=== PATIENT | female | born 1965 | race Caucasian/White ===

== ENCOUNTER 2016-11-10 21:00 | Emergency (ER) | payer SELFPAY | END 2016-11-10 22:50 | disposition left against medical advice (07) | LOC: D.ER 21:00 | DX: S30.860A Insect bite (nonvenomous) of lower back and pelvis, initial encounter (principal) ==

== ENCOUNTER 2017-08-27 20:03 | Emergency (ER) | payer SELFPAY | END 2017-08-27 21:30 | disposition home or self-care (01) | LOC: D.ER 20:03 | DX: J20.9 Acute bronchitis, unspecified (principal) ==

== ENCOUNTER 2019-03-17 04:13 | Inpatient (IN) | payer MEDICAID ==
[~2019-03-17] VITALS: Ht 157.5 cm; Wt 90.9 kg
[2019-03-17] VITALS (8 sets, daily range): BP systolic 116–161; BP diastolic 71–100; Ht 157.5 cm; Wt 90.9 kg
--- NOTE | ~2019-03-17 | OP ---
PATIENT NAME: TASHA JIMÉNEZ MEDICAL RECORD: [id number] :67 LOCATION:[facility] ADMISSION DATE:03/17/19 SURGEON: MELVIN VELASQUEZ MD DATE OF OPERATION: 03/18/2019 PREOPERATIVE DIAGNOSES: 1. Acute cholecystitis. 2. Morbid obesity. POSTOPERATIVE DIAGNOSES: 1. Acute cholecystitis. 2. Morbid obesity. PROCEDURE: Laparoscopic cholecystectomy. SURGEON: Melvin Velasquez MD REPORT OF PROCEDURE: The patient's abdomen was prepped and draped in sterile fashion. A cutdown was made on the superior aspect of the umbilicus and 0 Vicryls were placed in the fascia bilaterally. The fascia was incised with a 15-blade and opened her bluntly and entered the abdominal cavity. A 12-mm trocar was inserted and the abdomen was insufflated. Under direct visualization, a 5 mm trocar was placed in the epigastrium and 2 more 5-mm trocars were placed in the right subcostal region. The gallbladder was noted to have acute inflammatory changes with some adhesions present. There was a lot of fatty tissue adherent to the gallbladder, which was taken down with electrocautery and blunt dissection. We eventually dissected out the cystic duct and 2 cystic arteries. These were all clipped proximally and distally and ligated in standard fashion. The gallbladder was taken off the liver bed using electrocautery and placed in the right upper quadrant. Any bleeding from the liver bed was then treated with electrocautery. At this point, the ports and insufflation were then removed and the gallbladder was taken out through the umbilicus. The umbilical fascia was closed with interrupted 0 Vicryls times 3. The wounds were then irrigated out with normal saline and infused with 10 mL of 0.25% Marcaine with epinephrine. The skin incisions were all closed with subcutaneous 5-0 Monocryl and dressed appropriately. COMPLICATIONS: None. CONDITION: Stable. ANESTHESIA: General endotracheal and local. BLOOD LOSS: 50 mL. TRANSINT:[id number] Voice Confirmation ID: [id number] DOCUMENT ID: [id number] OPERATIVE REPORT [id number] TASHA JIMÉNEZ MELVIN VELASQUEZ MD CC: [id number] DICTATION DATE: 03/18/19 1345 RAILRO[address] CAR CLEANER: 03/18/19 1416 [place] [address]
[2019-03-17 04:58] LABS: APTT 25.8 SECONDS (22.8-39.4); BASOPHILS 0.5 % (0-2); EOSINOPHILS 4.6 % (0-7); HEMATOCRIT 39.8 % (36.0-48.0); HEMOGLOBIN 13.4 g/dL (12-16); IMMATURE GRANULOCYTES 0.2 % (0-5); INR 0.96 (0.85-1.17); LYMPHOCYTES 40.1 % (15-50); MCH 30.2 pg (26.0-34.0); MCHC 33.7 g/dL (31.0-37.0); MCV 89.6 fL (80.0-100.0); MEAN PLATELET VOLUME 10.2 fL (7.4-10.4); MONOCYTES 9.1 % (2-11); NEUTROPHILS 45.5 % (40-80); PLATELET COUNT 304 10x3/uL (130-400); PROTIME 12.3 SECONDS (11.6-15.0); RBC 4.44 10x6/uL (4.00-5.40); RDW 12.9 % (11.5-14.5); WBC 9.1 10x3/uL (4.8-10.8)
[2019-03-17 05:12] LABS: ALBUMIN 3.3 g/dL (3.4-5.0); ALKALINE PHOSPHATASE 111 U/L (46-116); ALT (SGPT) 23 U/L (10-68); BILIRUBIN - TOTAL 0.21 mg/dL (0.2-1.3); CALC OSMOLALITY 276 mosm/kg (275-300); CALCIUM 8.9 mg/dL (8.5-10.1); CARBON DIOXIDE 27.2 mmol/L (21.0-32.0); CHLORIDE - SERUM 104 mmol/L (98-107); GLUCOSE 105 mg/dL (74-106); POTASSIUM - SERUM 4.1 mmol/L (3.5-5.1); PROTEIN - SERUM 6.9 g/dL (6.4-8.2); SODIUM 138 mmol/L (136-145); UREA NITROGEN 15 mg/dL (7-18); eGFR NON AFRICAN AMERICAN 62 mL/min (90-120)
[2019-03-17 05:18] LABS: AMYLASE - SERUM 38 U/L (25-115); CKMB 1.4 U/L (0.0-3.6); CREATINE KINASE 144 UL (21-215); LIPASE 150 U/L (73-393); MAGNESIUM - SERUM 2.2 mg/dL (1.8-2.4); TROPONIN-I < 0.017 ng/mL (0.000-0.060)
--- NOTE | 2019-03-17 06:58 | NUR ---
REPORT GIVEN TO PAPA KAUR USING SBAR.
--- NOTE | 2019-03-17 07:20 | NUR ---
ASUMED CARE OF PT. RESTING IN BED WITH EYES CLOSED. AROUSES EASILY. REPROTS PAIN "BETTER" VSS
--- NOTE | 2019-03-17 07:40 | NUR ---
URINE SPEC OBTAINED, LABELED AT BS AND SENT TO LAB
--- NOTE | 2019-03-17 07:46 | NUR ---
TO CT VIA STRETCHER WITH REAL ESTATE ACCOUNTANT
[2019-03-17 08:09] LABS: APPEARANCE HAZY (CLEAR); BILIRUBIN NEGATIVE (NEGATIVE); COLOR YELLOW (YELLOW); GLUCOSE NEGATIVE (NEGATIVE); KETONE NEGATIVE (NEGATIVE); NITRITE POSITIVE (NEGATIVE); PROTEIN NEGATIVE (NEGATIVE); SPECIFIC GRAVITY 1.025 (1.005-1.020); UROBILINOGEN NORMAL (NORMAL)
[2019-03-17 08:10] LABS: BACTERIA MANY /hpf (NONE SEEN); EPITHELIAL CELLS OCC /hpf (0-5); MUCUS <1+ /lpf (NONE SEEN); RED CELLS - URINE RARE /hpf (0-5); WHITE CELLS - URINE 0-5 /hpf (0-5)
--- NOTE | 2019-03-17 08:16 | NUR ---
PTS DTR CALLED REQUESTING UPDATE ON MOM. TASHA GAVE VERBAL CONSENT TO SPEAK WITH HER DTR, SHARONDA.
--- NOTE | 2019-03-17 08:33 | NUR ---
INSTR PT NPO AND RATIONALE
--- NOTE | 2019-03-17 08:45 | NUR ---
US CLAIRE ROSAS FOR ABD US
--- NOTE | 2019-03-17 12:33 | NUR ---
Room assignment given by Maryam RAZO. [id number] @ 1233. Room is dirty and stat clean has been called for.
--- NOTE | 2019-03-17 13:12 | NUR ---
Received call from Maryam CHAWLA that patient's room is clean on the floor @ [id number].
--- NOTE | 2019-03-17 14:41 | NUR ---
PATIENT REQUESTED UNHOOKED FROM IV TO GO DOWNSTAIRS.
--- NOTE | 2019-03-17 15:57 | NUR ---
RESTING IN BED. FRIEND AT BEDSIDE. DENIES PAIN. DENIES NEEDS. WILL CONTINUE TO MONITOR.
--- NOTE | 2019-03-17 18:26 | NUR ---
RESTING IN BED. FRIEND AT BEDSIDE. DENIES PAIN. DENIES NEEDS. BED LOW. CALL MAJANO AND PERSONAL ITEMS IN REACH.
--- NOTE | 2019-03-17 20:00 | NUR ---
A&O X 4, FAMILY AT BEDSIDE. INFORMED OF NPO STATUS AFTER MIDNIGHT. REPORTS DECREASED APPETITE, NAUSEA, AND HEADACHE.
--- NOTE | 2019-03-18 01:30 | NUR ---
REPORTS PRN N/V MEDICATION IS NOT WORKING AND HEADACHE PERSISTS. MD NOTIFIED, MED GIVEN PER ORDER. WILL CONTINUE TO MONITOR
--- NOTE | 2019-03-18 04:42 | NUR ---
I have reviewed this patient and I concur with the Shift Assessment completed by the Licensed Practical Nurse today this shift.
[2019-03-18 05:44] VITALS: BP 127/74
[2019-03-18 06:42] LABS: BASOPHILS 0.4 % (0-2); EOSINOPHILS 1.8 % (0-7); HEMATOCRIT 40.8 % (36.0-48.0); HEMOGLOBIN 13.7 g/dL (12-16); IMMATURE GRANULOCYTES 0.1 % (0-5); LYMPHOCYTES 26.6 % (15-50); MCH 30.4 pg (26.0-34.0); MCHC 33.6 g/dL (31.0-37.0); MCV 90.7 fL (80.0-100.0); MEAN PLATELET VOLUME 10.4 fL (7.4-10.4); MONOCYTES 4.9 % (2-11); NEUTROPHILS 66.2 % (40-80); PLATELET COUNT 281 10x3/uL (130-400)
[2019-03-18 07:03] LABS: WBC 6.8 10x3/uL (4.8-10.8)
--- NOTE | 2019-03-18 07:56 | NUR ---
AFLERT AND ORIENTED. LUNGS CLEAR BILATERALLY IN ALL GALLEGOS. HEART SOUNDS S1 AND S2 HEARD IN ALL GALLEGOS. BOWEL SOUNDS ACTIVE X 4. SKIN INTACT WITHOUT REDNESS. IV TO [facility] PATENT WITHOUT REDNESS. SCHEDULED FOR [facility] GWENDOLYN TODAY. DENIES PAIN. DENIES NEEDS. BED LOW. CALL MAJANO AND PERSONAL ITEMS IN REACH. WILL CONTINUE TO MONITOR.
[2019-03-18 08:28] VITALS: BP 137/82
--- NOTE | 2019-03-18 11:17 | NUR ---
RESTING IN BED. DENIES PAIN. DENIES NEEDS. WILL CONTINUE TO MONITOR.
--- NOTE | 2019-03-18 11:40 | NUR ---
STAFF CAME TO TAKE PATIENT FOR PROCEDURE. CALLED SURGERY TO LET THEM KNOW NURSE WAS NOT MADE AWARE TO PREOP PATIENT AND NO PREOP ORDERS IN EMAR. STATED TO SEND PATIENT AND WOULD PREOP BEFORE SUGERY. PATIENT TAKEN FOR PROCEDURE.
[2019-03-18] MEDS ORDERED: HYDROCODON-ACE1 EA10 PO (13:31)
[2019-03-18 14:35] VITALS: BP 108/81
== END 2019-03-18 17:26 | disposition home or self-care (01) | DRG 419 ==
LOC: D.ER 04:13 → D.MS 12:33
PROVIDERS: Family Medicine; ADMIT Surgery; ATTEND Surgery
PROC: 0FT44ZZ Resection of Gallbladder, Percutaneous Endoscopic Approach (ICD-10-PCS; principal; 2019-03-18 10:30)
DX: K81.0 Acute cholecystitis (principal); E66.01 Morbid (severe) obesity due to excess calories; Z68.36 Body mass index [BMI] 36.0-36.9, adult

== ENCOUNTER 2020-03-21 22:10 | Emergency (ER) | payer MEDICAID ==
[~2020-03-21] VITALS: Ht 157.5 cm; Wt 113.6 kg
[~2020-03-21 22:10] MED LIST: HYDROCODON-ACE1 EA10 PO
[2020-03-21 22:27] VITALS: BP 135/78; Ht 157.5 cm; Wt 113.6 kg
[2020-03-21] MEDS ORDERED: DICLOFENAC SODI50 MG PO (23:02)
== END 2020-03-22 00:10 | disposition home or self-care (01) ==
LOC: D.ER 22:10
DX: M23.92 Unspecified internal derangement of left knee (principal); M25.562 Pain in left knee